=== PATIENT | male | born 1965 | race Caucasian/White ===

== ENCOUNTER 2021-09-03 14:25 | Outpatient (REF) | payer OTHER, SELFPAY ==
--- NOTE | ~2021-09-03 | XR_ITS ---
EXAMINATION: XR FOOT, RIGHT CLINICAL INFORMATION: Pain right foot. COMPARISON: None TECHNIQUE: AP, lateral, and oblique views of the right foot. FINDINGS: There is a healing fracture base of proximal phalanx fifth digit with moderate callus formation. No additional fracture seen. There is no dislocation. The soft tissues are normal. The ankle mortise and subtalar joints are normal. A small retrocalcaneal enthesophyte. XR/XR foot RT min 3V IMPRESSION: Healing fracture proximal end proximal phalanx fifth digit. Small retrocalcaneal enthesophyte.
== END 2021-09-03 14:26 | disposition home or self-care (01) ==
LOC: HO.XRAY 14:25
PROVIDERS: PCP Internal Medicine; Visit Provider Internal Medicine
DX: M79.671 Pain in right foot (principal)
CPT/HCPCS: 73630

== ENCOUNTER 2021-09-27 08:07 | Outpatient (REF) | payer OTHER, SELFPAY | END 2021-09-27 08:08 | disposition home or self-care (01) | LOC: HO.HOSX 08:07 | PROVIDERS: Visit Provider Physician Assistant | DX: Z13.89 Encounter for screening for other disorder (principal) ==